=== PATIENT | male | born 1960 | race Caucasian/White ===

== ENCOUNTER → 2024-09-15 09:03 | Outpatient (CLI) | payer OTHER, SELFPAY ==
[2024-09-15 10:19] LABS: Add Manual Diff / Slide Review NO; Basophils Absolute Auto 100 /uL (0-100); Basophils Percent Auto 0.7 % (0-2); Eosinophils Absolute Auto 200 /uL (0-450); Hematocrit 43.4 % (41-53); Hemoglobin 14.7 g/dL (13.5-17.5); Lymphocytes Absolute Auto 1900 /uL (1100-4500); Lymphocytes Percent Auto 21.8 % (25-40); Mean Corpuscular HGB Conc 33.9 % (30-36); Mean Corpuscular Hemoglobin 31.4 PG (26-34); Mean Corpuscular Volume 92.8 fL (80-100); Monocytes Absolute Auto 500 /uL (0-900); Monocytes Percent Auto 5.7 % (3-14); Neutrophils Absolute Auto 6100 /uL (1500-7000); Neutrophils Percent Auto 69.8 % (50-75); Platelet Count 211 X10^3/uL (150-400); Red Blood Cell Count 4.68 X10^6/uL (4.5-5.9); White Blood Cell Count 8.7 X10^3/uL (4.5-11.0)
[2024-09-15 10:44] LABS: Alanine Aminotransferase 35 IU/L (<50); Albumin 4.5 g/dL (3.5-5.0); Albumin Globulin Ratio 1.6 (1.0-2.8); Alkaline Phosphatase 116 U/L (38-126); Aspartate Aminotransferase 30 IU/L (17-59); Bilirubin Total 0.8 mg/dL (0.2-1.3); Blood Urea Nitrogen 16 mg/dL (9-20); Calcium 9.5 mg/dL (8.4-10.2); Carbon Dioxide 26 mmol/L (22-32); Chloride 102 mmol/L (98-107); Cholesterol 140 mg/dL (140-199); Estimated Glomerular Filt Rate > 60 mL/min (>60); Globulin 2.9 g/dL (1.7-4.1); Glucose 93 mg/dL (80-110); HDL Cholesterol 33 mg/dL (40-60); HEMOLYSIS 16 (0-50); LDL Cholesterol Calculated 92 mg/dL (<100); Potassium 4.7 mmol/L (3.4-5.1); Sodium 138 mmol/L (137-145); Total Protein 7.4 g/dL (6.3-8.2); Triglycerides 75 mg/dL (35-150)
[2024-09-16 08:39] LABS: PSA Free % 28.2 % (.); PSA, Total 5.1 ng/mL (0.0-4.0)
== END ==
LOC: LAB 09:04
PROVIDERS: PCP Family Medicine; Referring Provider Family Medicine; Visit Provider Family Medicine
DX: R94.30 Abnormal result of cardiovascular function study, unspecified (principal); E78.5 Hyperlipidemia, unspecified; I25.10 Atherosclerotic heart disease of native coronary artery without angina pectoris; Z72.0 Tobacco use
CPT/HCPCS: 36415; 80053; 80061; 84153; 84154; 85025

== ENCOUNTER → 2024-11-29 13:35 | Outpatient (CLI) | payer OTHER, SELFPAY ==
--- NOTE | 2024-11-29 13:36 | DI.CT.S_ITS ---
PROCEDURE: CT LUNG LOW DOSE SCREENING INDICATIONS: tobacco abuse TECHNIQUE: Noncontrast 2.0-2.5 mm thick sections acquired from the pulmonary apices to the posterior costophrenic angles. 7 mm thick axial MIP, and 5 mm coronal and sagittal reformats were then acquired. For radiation dose reduction, the following was used: automated exposure control, adjustment of mA and/or kV according to patient size. COMPARISON: None. FINDINGS: Image quality: Diagnostic. Lower Neck: No enlarged lymph nodes. Thyroid: No thyroid nodules which require sonographic follow up, per consensus guidelines. Axillae: No enlarged lymph nodes. Chest Wall: Unremarkable. Bones: Unremarkable. Lungs and Pleura: No pneumothorax or pleural effusions. No consolidation or suspicious nodules. Heart: Heart size is normal. No pericardial effusion. Thoracic Vessels: The ascending aorta measures 4.5 centimeter and the aortic arch measures 3.7 centimeter Mediastinum and Mai: No enlarged lymph nodes. Esophagus: No wall thickening. No hiatal hernia. Upper Abdomen: Visualized upper abdomen solid organs and bowel loops appear normal. IMPRESSION: No suspicious pulmonary nodules. LUNG-RADS 1; continued annual screening, if eligible. Clinically Significant Non-pulmonary Findings: Aneurysmal dilatation of the ascending aorta and aortic arch. Dictated by: Jose Sosa M.D. on 11/29/2024 at 16:13 Approved by: Jose Sosa M.D. on 11/29/2024 at 16:18
--- NOTE | 2024-11-29 13:36 | DI.NM.S_ITS ---
PROCEDURE: NM EXERCISE TREADMILL NON NUC COMPARISON: None. INDICATIONS: History of abnormal cardio function test, CKD, tobacco abuse FINDINGS: The patient exercised for 10 minutes and 13 seconds reaching 101% of maximum predicted heart rate. Appropriate BP response to exercise. Good exercise tolerance (12.8METs, ELIAZAR -29%). Frequent PACs and occasional PVCs present. Mild upsloping ST depressions in the inferior leads that quickly resolved in early recovery. No angina during the study. IMPRESSION: Low risk, probably normal treadmill nuclear stress test from inducible ischemia standpoint. Good exercise tolerance (12.8METs, ELIAZAR -29%). Frequent PACs and occasional PVCs present. Mild upsloping ST depressions in the inferior leads that quickly resolved in early recovery. No angina during the study. Dictated by: Rekha Hill MD on 11/29/2024 at 16:23 Approved by: Rekha Hill MD on 11/29/2024 at 16:29
== END ==
LOC: CT 13:36
PROVIDERS: PCP Family Medicine; Referring Provider Family Medicine; Visit Provider Family Medicine
DX: R94.30 Abnormal result of cardiovascular function study, unspecified (principal); F17.210 Nicotine dependence, cigarettes, uncomplicated; I25.10 Atherosclerotic heart disease of native coronary artery without angina pectoris
CPT/HCPCS: 71271; 93017

== ENCOUNTER → 2025-01-09 12:41 | Outpatient (CLI) | payer OTHER, SELFPAY ==
--- NOTE | 2025-01-09 12:42 | DI.RAD.S_ITS ---
PROCEDURE: XR CHEST 2V INDICATIONS: Cough TECHNIQUE: 2 views of the chest were acquired. COMPARISON: None. FINDINGS: Surgical changes and devices: None. Lungs and pleura: Lungs are clear. No pleural effusions or pneumothorax. Mediastinum: Mediastinal contours are normal. Heart size is normal. Bones and chest wall: No suspicious bony abnormalities. Soft tissues appear unremarkable. IMPRESSION: No acute cardiopulmonary abnormality is seen. Dictated by: Landon Bar M.D. on 01/10/2025 at 2:12 Approved by: Landon Bar M.D. on 01/10/2025 at 2:19
== END ==
PROVIDERS: PCP Family Medicine; Referring Provider Family Medicine; Visit Provider Physician Assistant
DX: R05.9 Cough, unspecified (principal)
CPT/HCPCS: 71046

== ENCOUNTER → 2025-01-09 13:59 | Outpatient (CLI) | payer OTHER, SELFPAY ==
[2025-01-09 14:42] LABS: Influenza A - CEPHEID Flu A NEGATIVE (NEGATIVE); Influenza B - CEPHEID Flu B NEGATIVE (NEGATIVE); Respiratory Syncytial Virus Negative (Negative)
[2025-01-09 14:43] LABS: COVID-19 CEPHEID 4-PLEX PCR Negative (Negative)
== END ==
PROVIDERS: PCP Family Medicine; Visit Provider Nurse Practitioner Family
DX: R05.1 Acute cough (principal)
CPT/HCPCS: 0241U; 71046

== ENCOUNTER 2025-05-04 08:52 | Day surgery (SDC) | payer MEDICARE, SELFPAY ==
[2025-05-04] VITALS (7 sets, daily range): BP systolic 77–127; BP diastolic 50–76; PULSE 62–82; RESP 16–22; TEMP 36.1–36.3; O2SAT 93–98
[2025-05-04] MEDS: LACTATED RINGERS 1,000 ML 42 ML IV (09:15)
--- NOTE | 2025-05-04 09:30 | PM.HP.IH.1 ---
History of Present Illness History of Present Illness Date Patient Seen: 05/04/25 Time Patient Seen: 09:30 Chief complaint: SDC Narrative: Ho is a 65-year-old man here for colonoscopy. His last colonoscopy was about 10 years ago and was normal. No family history of colon cancer. [facility] Surgical History (Updated 11/16/17 @ 06:16 by Ronnell Taylor MD) Status post colonoscopy Family History (Updated 09/05/14 @ 00:00 by Conversion Provider) Father Stroke Social History alcohol intake: current Meds Home Medications and Allergies Home Medications ?Medication ?Instructions ?Recorded ?Confirmed ?Type lisinopril 20 mg tablet 20 mg PO DAILY 09/15/24 05/04/25 History pravastatin 20 mg tablet 20 mg PO DAILY 09/15/24 01/09/25 History albuterol sulfate 90 mcg/actuation 2 puff inhalation Q6H PRN 01/09/25 01/09/25 Rx aerosol inhaler shortness of breath or wheezing #6.7 grams benzonatate 200 mg capsule 200 mg PO BID PRN cough #28 caps 01/09/25 01/09/25 Rx inhalational spacing device #1 ea 01/09/25 01/09/25 Rx (Aerochamber MV spacer) Allergies Allergy/AdvReac Type Severity Reaction Status Date / Time No Known Drug Allergies Allergy Verified 05/04/25 09:05 Exam Vital Signs (past 8 hours): - 05/04/25 09:07 Temperature 97.2 F L Pulse Rate 82 Respiratory Rate 16 Blood Pressure 107/76 Pulse Oximetry 98 Oxygen Delivery Method Room Air Oxygen Delivery Method Room Air Const General: healthy appearing Assessment & Plan Assessment and plan (1) Colon cancer screening: Status: Acute Plan Colonoscopy Time-Based Coding :: [TOTAL MINUTES] spent with patient and on the chart (including review of chart, obtaining history, exam, reviewing outside data, placing orders, documenting exam and treatment plan, and counseling patient) on [DATE]. PROFEE Rating Examiner Document charge(s): No
--- NOTE | 2025-05-04 09:58 | PM.OP.COLON ---
Operative Date/Time/Diagnoses Date of procedure: 05/04/25 Time of procedure: 09:58 Pre-op diagnosis: Colon cancer screening Post-op diagnosis: same Procedure & Clinicians Study performed: Colonoscopy Same procedure(s) as scheduled: Yes Surgeon: Ronnell Gallegos Anesthesia Type: MAC +/- Procedure Notes Procedure in detail: Surgeon: Ronnell Gallegos MD Anesthesia: Doug Underwood D.O. Procedure: The patient was brought to the endoscopy suite, placed in left lateral decubitus position. The patient was connected to monitoring devices. A time-out was performed. Sedation was administered. Once the patient was adequately sedated, a digital rectal exam was performed and was normal. The scope was then inserted and advanced to the cecum where the appendiceal orifice was identified and photographed. The scope was then slowly withdrawn over greater than 6 minutes. The mucosa was thoroughly inspected. No abnormalities were identified. The scope was retroflexed in the rectum. The scope was straightened and removed. The patient was awakened and brought to recovery. Scope withdrawal time: 8 minutes Sedation time: 14 minutes EBL: 0 Findings: Normal colon Post-procedure Recommendations: Colonoscopy in 10 years Disposition: PACU
== END 2025-05-04 10:45 | disposition home or self-care (01) ==
PROVIDERS: Surgery; PCP Family Medicine; Referring Provider Internal Medicine Gastroenterology; Visit Provider Internal Medicine Gastroenterology
PROC: 0DJD8ZZ Inspection of Lower Intestinal Tract, Via Natural or Artificial Opening Endoscopic (ICD-10-PCS; CPT 45378; principal; 2025-05-04 10:00)
DX: Z12.11 Encounter for screening for malignant neoplasm of colon (principal)
CPT/HCPCS: G0121; J2704; J7120

== ENCOUNTER → 2025-05-07 15:11 | Outpatient (CLI) | payer MEDICARE, SELFPAY ==
[2025-05-07 16:20] LABS: Add Manual Diff / Slide Review NO; Hematocrit 41.5 % (41-53); Hemoglobin 14.1 g/dL (13.5-17.5); Lymphocytes Absolute Auto 1900 /uL (1100-4500); Mean Corpuscular HGB Conc 34.0 % (30-36); Mean Corpuscular Hemoglobin 32.1 PG (26-34); Mean Corpuscular Volume 94.3 fL (80-100); Platelet Count 190 X10^3/uL (150-400)
[2025-05-07 16:48] LABS: Alanine Aminotransferase 43 IU/L (<50); Alkaline Phosphatase 94 U/L (38-126); Blood Urea Nitrogen 12 mg/dL (9-20); Calcium 8.9 mg/dL (8.4-10.2); Chloride 106 mmol/L (98-107); Cholesterol 149 mg/dL (140-199); Estimated Glomerular Filt Rate > 60 mL/min (>60); Glucose 121 mg/dL (70-99); HDL Cholesterol 42 mg/dL (40-60); HEMOLYSIS < 15 (0-50); Potassium 4.6 mmol/L (3.4-5.1); Sodium 139 mmol/L (137-145); Total Protein 6.8 g/dL (6.3-8.2); Triglycerides 87 mg/dL (35-150)
[2025-05-07 16:49] LABS: Albumin 4.2 g/dL (3.5-5.0); Albumin Globulin Ratio 1.6 (1.0-2.8); Carbon Dioxide 26 mmol/L (22-32); Globulin 2.6 g/dL (1.7-4.1)
== END ==
PROVIDERS: PCP Family Medicine; Referring Provider Family Medicine; Visit Provider Family Medicine
DX: E78.5 Hyperlipidemia, unspecified (principal); Z12.5 Encounter for screening for malignant neoplasm of prostate; I25.10 Atherosclerotic heart disease of native coronary artery without angina pectoris; I10 Essential (primary) hypertension
CPT/HCPCS: 36415; 80053; 80061; 85025; G0103